=== PATIENT | male | born 1960 ===

== ENCOUNTER 2019-08-01 15:24 | Emergency (ER) | payer BC, OTHER ==
[2019-08-01 16:06] LABS: ANION GAP 10.3 mEq/L (7-13); CHLORIDE,CL 103 mmol/L (98-107); SODIUM,NA 142 mmol/L (136-145)
--- NOTE | 2019-08-01 16:07 | EDM.PDOC ---
<Barb Goncalves - Last Filed: 08/01/19 16:36> ED HPI GENERAL MEDICAL PROBLEM - General Chief Complaint: Cardiovascular Problem Stated Complaint: Heart palpitations Time Seen by Provider: 08/01/19 16:00 Source of Information: Reports: Patient History Limitations: Reports: No Limitations - History of Present Illness INITIAL COMMENTS - FREE TEXT/NARRATIVE: Patient presents to the ED by private vehicle with concerns of heart palpitations. The patient describes episodes of "skipped beats" occurring once every couple of days. The patient describes feeling short of breath, anxious, and experiencing decreased energy for approximately 2-3 hours following this abnormal beat. He states that he has been experiencing this for maybe the past 10 years but it has recently been increasing in frequency. It can occur while wakling or at rest. He believes he had a full cardiac work-up including an exercise stress test 10 years ago in [place] as well. He does not recall the provider he saw, he is unsure what the conclusion of this testing was. The patient denies any significant past medical history. The patient specifically denies chest pain, nausea, dizziness, blood in the stool, change in his bowels, problems with reflux. He does not take any prescription medications. He consumes 1 cup of tea/coffee per day. Onset: Other (past 10 years) Duration: Getting Worse (increased frequency) Associated Symptoms: Reports: Shortness of Breath - Related Data Allergies Allergy/AdvReac Type Severity Reaction Status Date / Time No Known Allergies Allergy Verified 08/01/19 15:40 Home Meds: Home Meds . [No Known Home Meds] 08/01/19 [History] Past Medical History - Past Health History Medical/Surgical History: Denies Medical/Surgical History Social & Family History - Tobacco Use Smoking Status *Q: Never Smoker Second Hand Smoke Exposure: No - Recreational Drug Use Recreational Drug Use: No ED ROS GENERAL - Review of Systems Review Of Systems: See Below Constitutional: Denies: Fever, Chills Respiratory: Reports: Shortness of Breath. Denies: Wheezing, Cough Cardiovascular: Reports: Other (palpitations). Denies: Chest Pain, Blood Pressure Problem, Syncope Endocrine: Denies: Fatigue GI/Abdominal: Denies: Abdominal Pain, Black Stool, Bloody Stool, Constipation, Diarrhea, Nausea, Vomiting Neurological: Denies: Dizziness, Headache, Numbness, Weakness ED EXAM, GENERAL - Physical Exam Exam: See Below Exam Limited By: No Limitations General Appearance: Alert, WD/WN, No Apparent Distress Ears: Normal External Exam, Normal Canal, Hearing Grossly Normal, Normal TMs Nose: Normal Inspection, Normal Mucosa, No Blood Throat/Mouth: Normal Inspection, Normal Lips, Normal Teeth, Normal Gums, Normal Oropharynx, Normal Voice, No Airway Compromise Head: Atraumatic, Normocephalic Neck: Normal Inspection, Supple, Non-Tender, Full Range of Motion. No: Carotid Bruit Respiratory/Chest: No Respiratory Distress, Lungs Clear, Normal Breath Sounds, No Accessory Muscle Use, Chest Non-Tender Cardiovascular: Normal Peripheral Pulses, Regular Rate, Rhythm, No Edema, No Gallop, No JVD, No Murmur, No Rub. No: Extra Beats, Irregularly Irregular GI/Abdominal: Normal Bowel Sounds, Soft, Non-Tender, No Distention Extremities: Normal Inspection, Normal Range of Motion, Non-Tender, Normal Capillary Refill Neurological: Alert, Oriented, CN II-XII Intact, Normal Cognition, No Motor/ Sensory Deficits Psychiatric: Normal Affect, Normal Mood Skin Exam: Warm, Dry, Intact, Normal Color, No Rash Lymphatic: No Adenopathy EKG INTERPRETATION EKG Date: 08/01/19 Time: 15:30 Rate (Beats/Min): 74 [place]: Normal P-Wave: Present QRS: Normal ST-T: Normal QT: Normal Comparison: NA - No Prior EKG Course - Vital Signs Last Recorded V/S: Last Vital Signs Temp 36.6 C 08/01/19 15:35 Pulse 99 08/01/19 15:35 Resp 20 08/01/19 15:35 BP 129/74 08/01/19 15:35 Pulse Ox 98 08/01/19 15:35 - Orders/Labs/Meds Orders: Active Orders 24 hr Category Date Time Status EKG Documentation Completion [RC] URGENT Care 08/01/19 15:26 Active Chest 1V Frontal [CR] Urgent Exams 08/01/19 16:13 Ordered Labs: Laboratory Tests 08/01/19 08/01/19 08/01/19 Range/Units 15:39 15:39 15:39 WBC 7.1 (5.0-10.0) 10^3/uL RBC 4.72 (4.6-6.2) 10^6/uL Hgb 15.5 (14.0-18.0) g/dL Hct 43.9 (40.0-54.0) % MCV 93.0 (80-100) fL MCH 32.8 (27.0-34.0) pg MCHC 35.3 H (33.0-35.0) g/dL Plt Count 148 L (150-450) 10^3/uL Neut % (Auto) 63.3 (42.2-75.2) % Lymph % (Auto) 28.8 (20.5-50.1) % [place] % (Auto) 7.1 (2-8) % Eos % (Auto) 0.4 L (1.0-3.0) % Baso % (Auto) 0.4 (0.0-1.0) % Sodium 142 (136-145) mmol/L Potassium 3.3 L (3.5-5.1) mmol/L Chloride 103 (98-107) mmol/L Carbon Dioxide 32 (21-32) mmol/L Anion Gap 10.3 (7-13) mEq/L BUN 15 (7-18) mg/dL Creatinine 0.94 (0.70-1.30) mg/dL Est Cr Clr Drug Dosing TNP Estimated GFR (MDRD) > 60 BUN/Creatinine Ratio 16.0 (No establ ref range) Glucose 110 H (74-99) mg/dL Calcium 8.6 (8.5-10.1) mg/dL Magnesium 2.0 (1.8-2.4) mg/dL Total Bilirubin 0.6 (0.2-1.0) mg/dL AST 17 (15-37) U/L ALT 26 (16-63) U/L Alkaline Phosphatase 61 (46-116) U/L Troponin I < 0.017 (0.000-0.056) ng/mL Total Protein 7.3 (6.4-8.2) g/dL Albumin 4.3 (3.4-5.0) g/dL Globulin 3.0 Albumin/Globulin Ratio 1.4 TSH, Ultra Sensitive 1.32 (0.36-3.74) uIU/mL Departure - Departure Time of Disposition: 16:39 Disposition: Home, Self-Care 01 Condition: Good Clinical Impression: Palpitations Instructions: Palpitations, [id number], Ambulatory Cardiac Monitoring Forms: ED Department Discharge Additional Instructions: Follow-up with primary care provider/outpatient clinic to discuss ambulatory cardiac monitoring. Options may include: Ziopatch (2 week monitor), holter monitor Sepsis Event Note - Evaluation Sepsis Screening Result: No Definite Risk - Focused Exam Vital Signs: Vital Signs Temp Pulse Resp BP Pulse Ox 08/01/19 15:35 36.6 C 99 20 129/74 98 Date Exam was Performed: 08/01/19 Time Exam was Performed: 16:36 - My Orders Last 24 Hours: My Active Orders 08/01/19 15:26 EKG Documentation Completion [RC] URGENT 08/01/19 16:13 Chest 1V Frontal [CR] Urgent - Assessment/Plan Last 24 Hours: My Active Orders 08/01/19 15:26 EKG Documentation Completion [RC] URGENT 08/01/19 16:13 Chest 1V Frontal [CR] Urgent <Pepito Salgado - Last Filed: 08/01/19 16:40> Course - Re-Assessments/Exams Free Text/Narrative Re-Assessment/Exam: 08/01/19 16:40 I have examined the patient. I have discussed findings and treatment plan with the PA student. I agree with the assessment and plan in the following students note. Sepsis Event Note - Focused Exam Date Exam was Performed: 08/01/19 Time Exam was Performed: 16:40
== END 2019-08-01 16:51 | disposition home or self-care (01) ==
LOC: DL.ED 15:24
DX: R00.2 Palpitations (principal)
CPT/HCPCS: 36415; 71045; 80053; 83735; 84443; 84484; 85025; 93005; 99285-25